=== PATIENT | female | born 1970 | race Two or more races ===

== ENCOUNTER 2016-11-30 20:25 | Emergency (ER) | payer MEDICAID ==
[~2016-11-30] VITALS: Ht 154.9 cm; Wt 64.0 kg
[2016-11-30] MEDS ORDERED: ACETAMINOPHEN 500 MG TABLET PO ONE (21:00)
[2016-11-30] MEDS ORDERED: ACETAMINOPHEN 500 MG TABLET ONE (21:56)
[2016-11-30 22:02] VITALS: BP 131/87
[2016-11-30] MEDS ORDERED: CYCL-259 PO (22:05)
[2016-11-30] MEDS ORDERED: MELO-190 PO (22:05)
== END 2016-11-30 22:06 | disposition home or self-care (01) ==
LOC: ED 22:05
DX: R55 Syncope and collapse (principal); S00.83XA Contusion of other part of head, initial encounter; X58.XXXA Exposure to other specified factors, initial encounter; Y93.89 Activity, other specified; Y92.89 Other specified places as the place of occurrence of the external cause; Y99.8 Other external cause status
CPT/HCPCS: 70450; 93005